=== PATIENT | male | born 1965 | race African-American/Black ===

== ENCOUNTER 2025-03-06 14:31 | Emergency (ER) | payer BC, MEDICAID ==
[~2025-03-06] VITALS: Ht 165.1 cm; Wt 55.0 kg
[~2025-03-06 14:31] MED LIST: AMLO5TAB88 PO; KEPP500 PO
[2025-03-06 14:46] VITALS: O2SAT 100
[2025-03-06] MEDS ORDERED: FLUORESCEIN SODIUM 1MG/STRIP BOTHEYE ONE (17:00)
[2025-03-06] MEDS ORDERED: TETRACAINE 0.5% OPHTH DROPS 4ML BOTHEYE ONE (17:00)
[2025-03-06 17:16] VITALS: BP 130/84; PULSE 96; RESP 16; TEMP 37; O2SAT 100
== END 2025-03-06 18:01 | disposition home or self-care (01) ==
LOC: ER 14:31
DX: R60.0 Localized edema (principal); I10 Essential (primary) hypertension; I67.82 Cerebral ischemia; Z79.899 Other long term (current) drug therapy
CPT/HCPCS: 70480; 99284; A4606

== ENCOUNTER 2025-03-30 17:03 | Emergency (ER) | payer BC, MEDICAID ==
[~2025-03-30] VITALS: Ht 182.9 cm; Wt 77.0 kg
[2025-03-30 17:06] VITALS: O2SAT 99
[2025-03-30 17:36] LABS: CLARITY URINE CLEAR (CLEAR); GLUCOSE URINE NEGATIVE (NEGATIVE); KETONES URINE NEGATIVE (NEGATIVE); LEUKOCYTE ESTERASE URINE NEGATIVE (NEGATIVE); NITRITE URINE NEGATIVE (NEGATIVE); OCCULT BLOOD URINE NEGATIVE (NEGATIVE); PH URINE 5.5 (4.5-8.0); PROTEIN URINE TRACE (NEGATIVE); UROBILINOGEN URINE 0.2 E.U./dL (0.2-1.0)
[2025-03-30 17:49] LABS: *AMPHETAMINES SCREEN URINE NEGATIVE (NEGATIVE); *BARBITURATES SCREEN URINE NEGATIVE (NEGATIVE); *BENZODIAZEPINES SCREEN URINE NEGATIVE (NEGATIVE); *COCAINE SCREEN URINE NEGATIVE (NEGATIVE); CANNABINOID URINE SCREEN PRESUMPTIVE POSITIVE (NEGATIVE); COLOR URINE STRAW (YELLOW); ECSTASY MDMA SCREEN URINE NEGATIVE (NEGATIVE); METHADONE URINE SCREEN NEGATIVE (NEGATIVE); OPIATES URINE SCREEN NEGATIVE (NEGATIVE); PHENCYCLIDINE URINE SCREEN NEGATIVE (NEGATIVE)
[2025-03-30 17:54] LABS: BACTERIA URINE TRACE; RBC URINE NONE SEEN /hpf (0-2); SQUAMOUS EPITHELIAL CELL URINE RARE /lpf (RARE/1+); WBC URINE 0-2 /hpf (0-2)
[2025-03-30 17:55] LABS: COARSE GRANULAR CASTS URINE 0-5 /lpf
[2025-03-30 18:02] LABS: BASOPHILS % 0.7 % (0.0-2.0); EOSINOPHILS % 1.3 % (0.0-5.0); HEMATOCRIT. 39.1 % (42.0-52.0); HEMOGLOBIN. 12.9 g/dL (14.0-18.0); LYMPHOCYTES % 47.3 % (20.0-50.0); MEAN CORPUSCULAR HEMOGLOBIN 30.1 pg (28.0-32.0); MEAN CORPUSCULAR HGB CONC 33.1 g/dL (31.0-37.0); MEAN PLATELET VOLUME 7.3 fl (7.4-10.4); NEUTROPHILS % 42.7 % (40.0-76.0); PLATELET 264 x1000/uL (130-400); RED BLOOD CELL COUNT 4.29 mill/uL (4.7-6.1); RED CELL DISTRIBUTION WIDTH 17.5 % (11.6-14.6); WHITE BLOOD COUNT 5.9 x1000/uL (4.5-11.0)
[2025-03-30 18:03] LABS: CHLORIDE 108 mEq/L (98-107); POTASSIUM 3.2 mEq/L (3.5-5.1); SODIUM 144 mEq/L (136-145)
[2025-03-30 18:04] LABS: CALCIUM 9.1 mg/dL (8.7-10.4); CARBON DIOXIDE 26 mEq/L (21-32)
[2025-03-30 18:09] LABS: CREATININE 1.1 mg/dL (0.6-1.3); GLUCOSE 91 mg/dL (70-105); UREA NITROGEN BLOOD 7 mg/dL (9-23)
[2025-03-30 18:11] LABS: ACETAMINOPHEN < 2 ug/mL (10-30)
[2025-03-30 18:19] LABS: ETHANOL BLOOD 372 mg/dL (<10)
[2025-03-30] MEDS: KETOROLAC 30MG/ML VIAL IM STA (18:49)
[2025-03-31 10:01] VITALS: BP 134/79; PULSE 80; RESP 14; TEMP 36.9; O2SAT 97
== END 2025-03-31 10:02 | disposition home or self-care (01) ==
LOC: ER 17:03
DX: R45.851 Suicidal ideations (principal); F10.129 Alcohol abuse with intoxication, unspecified; S00.83XA Contusion of other part of head, initial encounter; I10 Essential (primary) hypertension; F32.A Depression, unspecified; F12.10 Cannabis abuse, uncomplicated; Z20.822 Contact with and (suspected) exposure to COVID-19; Z86.59 Personal history of other mental and behavioral disorders; W22.8XXA Striking against or struck by other objects, initial encounter; Y93.89 Activity, other specified; Y92.89 Other specified places as the place of occurrence of the external cause; Y99.8 Other external cause status; Y90.8 Blood alcohol level of 240 mg/100 ml or more
CPT/HCPCS: 80305; 80048; 81003; 80307; 80329; 80320; 85025; 36415; 70450; 93005; 96372; 99285; 87426; J1885; G0480